=== PATIENT | female | born 1935 | race Caucasian/White ===

== ENCOUNTER 2016-07-29 15:02 | Emergency (ER) | payer MEDICARE, BC ==
[~2016-07-29] VITALS: Ht 160 cm; Wt 78.7 kg
[~2016-07-29 15:02] MED LIST: ASPI81TA82 PO; CYCL-36 PO; HYDR-3129 PO; HYDR12.56 PO; LORTA5 PO; MELA3CAP2 PO; METO25CR PO; ZOCO40TA PO
[2016-07-29 15:41] VITALS: BP 166/88; PULSE 54; RESP 16; O2SAT 96
[2016-07-29 16:02] LABS: BLOOD, URINE NEG (NEG); GLUCOSE,URINE NEG (NEG); KETONE, URINE NEG (NEG); NITRITE,URINE NEG (NEG)
[2016-07-29 16:16] LABS: COMMENT (UR) CULT NOT INDICATED; CULTURE IF INDICATED CULT NOT INDICATED; METHOD OF COLLECTION CLEAN CATCH; RBC, URINE 0-3 /hpf (0-3); URINE COLOR YELLOW (YELLW/STRAW); WBC, URINE 0-2 /hpf (0-5)
[2016-07-29 17:05] VITALS: BP 177/97; PULSE 54; RESP 18; O2SAT 96
[2016-07-29] MEDS ORDERED: MORPHINE SULFATE 4 MG/ML INJ IM ONE (17:15)
--- NOTE | 2016-07-29 17:20 | PD ---
HPI . Left flank pain Chief Complaint: Flank/Kidney Pain Time Seen by Provider: 17:12 Travel History International Travel<30 days: No Contact w/Intl Traveler<30days: No Traveled to known affect area: No History of Present Illness HPI Patient presents with a 2 day history of low back pain. Pain is exacerbated by certain movements especially going from sitting to standing position. Pain is associated with nausea. She denies any urinary or bowel incontinence. She denies radicular symptoms. She denies fever. She does state that she was recently treated for urinary tract infection. She completed her antibiotics this morning. She states that she still urinates all the time. Patient states that she spent several days this past week hiking in cold weather carrying photography equipment. Patient further reports a history of chronic back problems. She states that she takes ibuprofen and [place] 3 times daily for chronic low back pain. [id number]: Left low back SEVERITY:10/10 DURATION: Chronic TIMING: Worse the past 2 days CONTEXT: Worsen after spending several days hiking and carrying camera equipment MODIFYING FACTORS: Exacerbated by certain movements ASSOCIATED SYMPTOMS: Associated with nausea. No associated incontinence, radicular symptoms or fever PFSH Past Medical History Hx Anticoagulant Therapy: Yes (asa 81mg) Arthritis: Yes Blood Disorders: No Cancer: No Cardiac Catheterization: Yes (STENT) Cardiovascular Problems: Yes (CARDIAC CATH/STENT) High Cholesterol: Yes Chest Pain: Yes COPD: Yes Coronary Artery Disease: Yes Diminished Hearing: No Endocrine: No Gastrointestinal Disorders: Yes (GERD) GERD: Yes Genitourinary: No Hypertension: Yes Immune Disorder: No Musculoskeletal: No Neurologic: No Psychiatric: No Reproductive: No Respiratory: Yes (copd) Immunizations Current: Yes Sleep Apnea: Yes ?: Not Past Surgical History Cholecystectomy: Yes Coronary Stent: Yes Hysterectomy: Yes Joint Replacement: Yes (L KNEE, LEFT HIP REPLACEMENT) Tonsillectomy: Yes Social History Alcohol Use: Yes (OCCASIONAL) Tobacco Use: No Substance Use: No Allergies-Medications (Allergen,Severity, Reaction): Coded Allergies: Valium (Unverified Allergy, Mild, 07/29/16) Sulfa (Unverified Allergy, Unknown, 07/29/16) Reported Meds & Prescriptions Reported Meds & Active Scripts Active Reported Simvastatin 40 Mg Tab 40 Mg PO HS Metoprolol Succinate ER 24 HR (Metoprolol Succinate) 25 Mg Tab 12.5 Mg PO DAILY Aspirin 81 Mg Tabdr 81 Mg PO DAILY Ibuprofen 200 Mg Tab 200 Mg PO Q6H PRN Hydrocodone-Acetaminophen 7.5-325 mg Tab 1 Tab PO Q4H PRN Review of Systems Except as stated in HPI: all other systems reviewed are Neg General / Constitutional: No: Fever, Chills Genitourinary: Positive: Frequency Musculoskeletal: Positive: Myalgias, Arthralgias, Limited ROM Neurologic: No: Weakness, Focal Abnormalities, Paresthesia, Incontinence Physical Exam Narrative GENERAL: This is an 80-year-old female who is awake and alert and in no acute distress. SKIN: Warm and dry. HEAD: Atraumatic. Normocephalic. EYES: Pupils equal and round. ENT: No nasal bleeding or discharge. Mucous membranes pink and moist. NECK: Trachea midline. Neck is supple. CARDIOVASCULAR: Regular rate and rhythm. RESPIRATORY: No accessory muscle use. GASTROINTESTINAL: Abdomen soft, non-tender, nondistended. MUSCULOSKELETAL: No obvious deformities. No edema. She is tender to palpation in the lowest lumbar area and sacral area. She also has some tenderness over the left iliac crest. She is not point tender along the SI joint. NEUROLOGICAL: Awake and alert. No obvious cranial nerve deficits. Motor grossly within normal limits. Normal speech. PSYCHIATRIC: Appropriate mood and affect; insight and judgment normal. Data Data Last Documented VS Vital Signs Date Time Temp Pulse Resp B/P Pulse Ox O2 Delivery O2 Flow Rate FiO2 07/29/16 18:45 51 16 212/74 95 Room Air Orders Urinalysis - C+S If Indicated (07/29/16 15:50) Ct Abd/Pel W/O Iv Contrast (07/29/16 17:12) Ct Lumb Spine W/O Contrast (07/29/16 17:12) Morphine Inj (Morphine Inj) (07/29/16 17:15) Labs Laboratory Tests Test 07/29/16 15:50 Urine Collection Type CLEAN CATCH Urine Color YELLOW Urine Turbidity CLEAR Urine pH 6.0 Urine Specific [place] 1.014 Urine Protein NEG mg/dL Urine Glucose (UA) NEG mg/dL Urine Ketones NEG mg/dL Urine Occult Blood NEG Urine Nitrite NEG Urine Bilirubin NEG Urine Leukocyte Esterase NEG Urine RBC 0-3 /hpf Urine WBC 0-2 /hpf Urine Squamous Epithelial 6-8 /hpf Cells Urine Amorphous Sediment FEW Microscopic Urinalysis Comment CULT NOT INDICATED Urine Collection Time 1550 MDM Medical Decision Making Medical Screen Exam Complete: Yes Emergency Medical Condition: Yes Medical Record Reviewed: Yes (medical history is significant for COPD) Differential Diagnosis Differential diagnosis of flank pain includes but is not limited to kidney stone , pyelonephritis, musculoskeletal pain, PE Narrative Course Patient presents complaining with low back pain. She initially reported left flank pain and recent UTI. However, her description of the pain is more musculoskeletal in the lower lumbar and sacral area of the back and over into the left iliac crest. The pain is really not located flank. This is an elderly patient with back pain. A CT will be done to rule out the possibility of AAA. I have also ordered a CT of her lumbar spine. CT CONCLUSION: 1. Unremarkable bowel gas pattern with no inflammatory change or evidence of obstruction. 2. Bilateral renal cysts with no evidence of obstruction. 3. Status post cholecystectomy and hernia repair. 4. Simple cyst in left lobe of the liver. 5. Degenerative changes in the lumbar spine. Diagnosis Primary Impression: Low back pain Qualified Code: M54.5 - Chronic left-sided low back pain without sciatica Additional Impression: Osteoarthritis Qualified Code: M47.817 - Spondylosis of lumbosacral region without myelopathy or radiculopathy Patient Instructions: General Instructions, Osteoarthritis (DC) Med/Other Pt SpecificInfo: Prescription(s) given Scripts Oxycodone-Acetaminophen (Percocet)5-325 mg Tab1 Tab PO Q4H PRN (PAIN) #12 TAB Ref 0 Prov:Danielle Goodwin MD 07/29/16 Disposition: 01 DISCHARGE HOME Condition: Stable Danielle Goodwin MD Jul 29, 2016 17:20
[2016-07-29] MEDS ORDERED: ASPI1TAB69 PO (17:23)
[2016-07-29] MEDS ORDERED: SIMV40TA PO (17:23)
[2016-07-29] MEDS ORDERED: HYDR-3580 PO (17:23)
[2016-07-29] MEDS ORDERED: METO25TA6 PO (17:23)
[2016-07-29] MEDS ORDERED: IBUP200T2 PO (17:23)
[2016-07-29 18:45] VITALS: BP 212/74; PULSE 51; RESP 16; O2SAT 95
--- NOTE | 2016-07-29 19:07 | RADHPO ---
EXAM DATE/TIME: 07/29/2016 18:27 [facility] COMPARISON: No previous studies available for comparison. INDICATIONS : Lower back pain, nausea. ORAL CONTRAST: No oral contrast ingested. RADIATION DOSE: 17.82 CTDIvol (mGy) MEDICAL HISTORY : Gastroesophageal reflux disease. Cardiovascular disease Chronic obstructive pulmonary disease.Hyperte nsion. SURGICAL HISTORY : Cholecystectomy. Hysterectomy.Coronary artery stent.Left total hip replacement. ENCOUNTER: Initial ACUITY: 2 days PAIN SCALE: 5/10 LOCATION: Bilateral flank TECHNIQUE: Volumetric scanning of the abdomen and pelvis was performed. Using automated exposure control and ad justment of the mA and/or kV according to patient size, radiation dose was kept as low as reasonably achievable to obtain optimal diagnostic quality images. FINDINGS: LOWER LUNGS: The visualized lower lungs are clear. LIVER: Homogeneous density with a small simple appearing cyst in the left lobe. The patient is status post c holecystectomy. There is no dilation of the biliary tree. SPLEEN: Normal size without lesion. PANCREAS: Within normal limits. KIDNEYS: There multiple bilateral simple appearing renal cysts the largest measures up to approximately 7 cm o n the right. There are 2 tiny nonobstructing left renal calculi. There is no evidence of hydronephros is. The visualized portions of the ureters are unremarkable. ADRENAL GLANDS: Within normal limits. VASCULAR: There is no aortic aneurysm. BOWEL/MESENTERY: The stomach, small bowel, and colon demonstrate no acute abnormality. There is no free intraperitone al air or fluid. ABDOMINAL WALL: Postsurgical changes are noted status post hernia repair no recurrent hernia. RETROPERITONEUM: There is no lymphadenopathy. BLADDER: No wall thickening or mass. REPRODUCTIVE: Within normal limits. INGUINAL: There is no lymphadenopathy or hernia. MUSCULOSKELETAL: Osteopenia, degenerative change and mild scoliosis is present. Patient is status post left hip arthro plasty. Degenerative changes are noted the right hip joint space loss and hypertrophic change. There are degenerative changes in lumbar spine. CONCLUSION: 1. Unremarkable bowel gas pattern with no inflammatory change or evidence of obstruction. 2. Bilateral renal cysts with no evidence of obstruction. 3. Status post cholecystectomy and hernia repair. 4. Simple cyst in left lobe of the liver. 5. Degenerative changes in the lumbar spine. Dipak Lemus MD on July 29, 2016 at 19:00 Board Certified Radiologist. This report was verified electronically.
[2016-07-29] MEDS ORDERED: PERC5TAB12 PO (19:13)
--- NOTE | 2016-07-29 19:15 | RADHPO ---
EXAM DATE/TIME: 07/29/2016 18:27 [facility] COMPARISON: No previous studies available for comparison. INDICATIONS : Lower back and bilateral hip pain. RADIATION DOSE: ; Reconstructed from previous dataset MEDICAL HISTORY : Cardiovascular disease. Chronic obstructive pulmonary disease. Gastroesophageal reflux disease.Hypert ension. SURGICAL HISTORY : Cholecystectomy. Hysterectomy.Coronary artery stent.Left total hip replacement. ENCOUNTER: Initial ACUITY: 2 days PAIN SCALE: 5/10 LOCATION: Bilateral hips. TECHNIQUE: Volumetric scanning of the lumbar spine was performed. Multiplanar reconstructions in the sagittal, coronal and oblique axial planes were performed. Using automated exposure control and adjustment of the mA and/or kV according to patient size, radiation dose was kept as low as reasonably achievable t o obtain optimal diagnostic quality images. FINDINGS: VERTEBRAE: Normal vertebral body height. DISCS: Degenerative disc changes are present at L4-5 and L5-S1 levels with disc space narrowing and mild scl erosis. Vacuum disc phenomena present. ALIGNMENT: There is grade 1 anterior spondylolisthesis of L4 on L5 approximately 5 mm. T12-L1: The thecal sac has a normal diameter. No evidence of disc bulge or protrusion. The neural foramina are patent bilaterally. L1-L2: The thecal sac has a normal diameter. No evidence of disc bulge or protrusion. The neural foramina are patent bilaterally. L2-L3: The thecal sac has a normal diameter. No evidence of disc bulge or protrusion. The neural foramina are patent bilaterally. L3-L4: There is a moderate disc bulge with flattening of the anterior thecal sac and mild narrowing of the n eural foramina. There is no focal protrusion. There are mild degenerative changes of the facet joints with mild to moderate central canal stenosis. L4-L5: Grade 1 anterior spondylolisthesis again noted. There is a diffuse disc bulge with flattening of the anterior thecal sac and narrowing of the neural foramina bilaterally. There are degenerative changes of the facet joints with mild to moderate central canal stenosis. L5-S1: The thecal sac has a normal diameter. No evidence of disc bulge or protrusion. The neural foramina are patent bilaterally. There are degenerative changes involving the facet joints. CONCLUSION: 1. Grade 1 anterior spondylolisthesis of L4 on L5 of approximately 5 mm with annular disc bulge with flattening of the anterior thecal sac and bilateral foraminal stenosis. There is mild to moderate karl tral canal stenosis. 2. Mild to moderate central canal stenosis at the L3-4 level secondary to disc bulge and degenerative change involving the facets. 3. Degenerative disc changes at the L4-5 and L5-S1 levels. Dipak Lemus MD on July 29, 2016 at 19:06 Board Certified Radiologist. This report was verified electronically.
== END 2016-07-29 20:05 | disposition home or self-care (01) ==
LOC: PHED 15:02
DX: M54.5 Low back pain (principal); M47.817 Spondylosis without myelopathy or radiculopathy, lumbosacral region; R11.0 Nausea; I10 Essential (primary) hypertension; E78.00 Pure hypercholesterolemia, unspecified; G47.30 Sleep apnea, unspecified; Z79.82 Long term (current) use of aspirin; Z87.39 Personal history of other diseases of the musculoskeletal system and connective tissue; Z86.79 Personal history of other diseases of the circulatory system; Z87.09 Personal history of other diseases of the respiratory system; Z87.19 Personal history of other diseases of the digestive system; Z87.440 Personal history of urinary (tract) infections
CPT/HCPCS: 72131; 74176; 81001; 96372; 99284; J2270